=== PATIENT | female | born 1955 | race Caucasian/White ===

== ENCOUNTER 2018-07-23 18:50 | Emergency (ER) | payer BC ==
[~2018-07-23] VITALS: Ht 165.1 cm; Wt 90.9 kg
[2018-07-23 19:25] VITALS: Ht 165.1 cm; Wt 90.9 kg
[2018-07-23] MEDS ORDERED: SYNTHROID25 MCG PO (19:29)
[2018-07-23] MEDS ORDERED: TOPROL XL50 MG PO (19:29)
[2018-07-23] MEDS ORDERED: [UNRECOGNIZED DRUG - OTHER] PO (19:29)
[2018-07-24 02:01] VITALS: BP 119/80
== END 2018-07-23 22:33 | disposition home or self-care (01) ==
LOC: D.ER 18:50
DX: R07.9 Chest pain, unspecified (principal); V43.52XA Car driver injured in collision with other type car in traffic accident, initial encounter; Y93.89 Activity, other specified; Y92.410 Unspecified street and highway as the place of occurrence of the external cause; I10 Essential (primary) hypertension

== ENCOUNTER → 2018-10-26 08:06 | Outpatient (CLI) | payer BC ==
[2018-07-23 19:25] VITALS: BMI 33.3
[~2018-10-26 08:06] MED LIST: SYNTHROID25 MCG PO; TOPROL XL50 MG PO; [UNRECOGNIZED DRUG - OTHER] PO
== END | disposition home or self-care (01) ==
LOC: D.RAD 08:06
DX: N20.0 Calculus of kidney (principal)

== ENCOUNTER → 2019-02-02 08:00 | Outpatient (CLI) | payer BC ==
[2018-07-23 19:25] VITALS: BMI 33.3
== END | disposition home or self-care (01) ==
LOC: D.MAMMO 08:00
PROVIDERS: ATTEND Internal Medicine
DX: Z12.31 Encounter for screening mammogram for malignant neoplasm of breast (principal)